=== PATIENT | male | born 1955 | race Caucasian/White ===

== ENCOUNTER → 2018-06-13 10:03 | Outpatient (CLI) | payer MEDICARE, BC, SELFPAY ==
[2018-06-13 11:16] LABS: Add Manual Diff / Slide Review NO; Basophils Percent Auto 0.9 % (0-2); Eosinophils Percent Auto 4.3 % (2-4); Hematocrit 39.2 % (41-53); Hemoglobin 13.4 g/dL (13.5-17.5); Lymphocytes Percent Auto 27.1 % (25-40); Mean Corpuscular HGB Conc 34.1 % (30-36); Mean Corpuscular Hemoglobin 29.7 PG (26-34); Monocytes Percent Auto 10.7 % (3-14); Neutrophils Absolute Auto 3400 /uL (3000-5900); Platelet Count 296 X10^3/uL (150-400); Red Blood Cell Count 4.51 X10^6/uL (4.5-5.9); Red Cell Distribution Width 13.1 % (11.6-14.8); White Blood Cell Count 5.9 X10^3/uL (4.5-11.0)
[2018-06-13 11:26] LABS: Hemoglobin A1C% w Est Avg Glu 7.2 % (4.0-6.0)
[2018-06-13 12:19] LABS: Alanine Aminotransferase 35 IU/L (21-72); Albumin 4.6 g/dL (3.5-5.0); Albumin Globulin Ratio 1.4 (1.0-2.8); Alkaline Phosphatase 81 U/L (38-126); Aspartate Aminotransferase 28 IU/L (17-59); BUN Creatinine Ratio 19.3 (6-22); Bilirubin Total 0.6 mg/dL (0.2-1.3); Blood Urea Nitrogen 29 mg/dL (9-20); Calcium 9.8 mg/dL (8.4-10.2); Carbon Dioxide 32 mmol/L (22-32); Chloride 101 mmol/L (98-107); Cholesterol 126 mg/dL (140-199); Globulin 3.3 g/dL (1.7-4.1); Glucose 137 mg/dL (80-110); HDL Cholesterol 31 mg/dL (40-60); HEMOLYSIS < 15 (0-50); LDL Cholesterol Calculated 58 mg/dL (<100); Potassium 4.6 mmol/L (3.4-5.1); Sodium 141 mmol/L (137-145); Total Protein 7.9 g/dL (6.3-8.2); Triglycerides 183 mg/dL (35-150)
[2018-06-13 14:31] LABS: Creatinine Urine Random 181.2 mg/dL
[2018-06-13 14:35] LABS: Microalbumi Creatinin Ratio Ur 39.1 ug/mg CR (<30); Microalbumin Urine Random 7.1 mg/dL (0-1.6)
== END ==
PROVIDERS: Visit Provider Family Medicine
DX: E78.2 Mixed hyperlipidemia (principal); I10 Essential (primary) hypertension; E11.9 Type 2 diabetes mellitus without complications
CPT/HCPCS: 36415; 80053; 80061; 82043; 82570; 83036; 85025

== ENCOUNTER → 2018-07-22 09:36 | Outpatient (CLI) | payer MEDICARE, BC, SELFPAY ==
[2018-07-22 10:49] LABS: Hemoglobin A1C% w Est Avg Glu 7.2 % (4.0-6.0)
[2018-07-22 10:57] LABS: Cholesterol 204 mg/dL (140-199); HDL Cholesterol 29 mg/dL (40-60); Triglycerides 445 mg/dL (35-150)
== END ==
PROVIDERS: Visit Provider Family Medicine
DX: E78.2 Mixed hyperlipidemia (principal); E11.9 Type 2 diabetes mellitus without complications; M10.9 Gout, unspecified
CPT/HCPCS: 36415; 80061; 83036; 84550

== ENCOUNTER → 2018-12-26 15:20 | Outpatient (CLI) | payer MEDICARE, BC, SELFPAY ==
[2018-12-26 16:13] LABS: Add Manual Diff / Slide Review NO; Basophils Absolute Auto 0 /uL (0-100); Basophils Percent Auto 0.9 % (0-2); Eosinophils Absolute Auto 100 /uL (0-450); Eosinophils Percent Auto 2.4 % (2-4); Hematocrit 41.7 % (41-53); Hemoglobin 13.8 g/dL (13.5-17.5); Lymphocytes Absolute Auto 1300 /uL (1100-4500); Lymphocytes Percent Auto 24.4 % (25-40); Mean Corpuscular HGB Conc 33.1 % (30-36); Mean Corpuscular Hemoglobin 29.1 PG (26-34); Mean Corpuscular Volume 87.9 fL (80-100); Monocytes Absolute Auto 400 /uL (0-900); Neutrophils Absolute Auto 3500 /uL (1500-7000); Neutrophils Percent Auto 64.3 % (50-75); Platelet Count 306 X10^3/uL (150-400); Red Blood Cell Count 4.74 X10^6/uL (4.5-5.9); Red Cell Distribution Width 13.3 % (11.6-14.8); White Blood Cell Count 5.5 X10^3/uL (4.5-11.0)
[2018-12-26 16:47] LABS: Alanine Aminotransferase 27 IU/L (21-72); Albumin 4.9 g/dL (3.5-5.0); Albumin Globulin Ratio 1.7 (1.0-2.8); Alkaline Phosphatase 54 U/L (38-126); Aspartate Aminotransferase 21 IU/L (17-59); BUN Creatinine Ratio 17.9 (6-22); Bilirubin Total 0.3 mg/dL (0.2-1.3); Blood Urea Nitrogen 25 mg/dL (9-20); Calcium 10.3 mg/dL (8.4-10.2); Carbon Dioxide 29 mmol/L (22-32); Chloride 104 mmol/L (98-107); Estimated Glomerular Filt Rate 50.9 mL/min (>60); Globulin 2.9 g/dL (1.7-4.1); Glucose 137 mg/dL (80-110); HEMOLYSIS < 15 (0-50); Potassium 4.7 mmol/L (3.4-5.1); Sodium 142 mmol/L (137-145); Total Protein 7.8 g/dL (6.3-8.2)
[2018-12-26 17:15] LABS: TSH w/ Reflex to FT4 2.22 uIU/mL (0.47-4.68)
[2018-12-28 11:47] LABS: Hemoglobin A1C% w Est Avg Glu 6.5 % (4.0-6.0)
[2018-12-29 14:07] LABS: Testosterone Free 38.6 pg/mL (35.0-155.0); Testosterone Total 404 ng/dL (250-1100)
== END ==
PROVIDERS: Family Provider Student in an Organized Health Care Education/Training Program; PCP Student in an Organized Health Care Education/Training Program; Visit Provider Physician Assistant
DX: E11.9 Type 2 diabetes mellitus without complications (principal); R63.4 Abnormal weight loss
CPT/HCPCS: 36415; 80053; 83036; 84402; 84403; 84443; 85025

== ENCOUNTER → 2018-12-30 15:03 | Outpatient (CLI) | payer MEDICARE, BC, SELFPAY ==
[2018-12-30 16:45] LABS: Vitamin D 25 Hydroxy (D3) 26.8 ng/mL (30.0-100.0)
[2018-12-30 16:59] LABS: Prostate Specific Antigen Scrn 3.86 ng/mL (0.1-4.0)
[2018-12-30 17:02] LABS: C-Reactive Protein Quant < 0.5 mg/dL (<1.0)
[2018-12-30 17:03] LABS: Rubella Antibody IgG > 350.0 IU/mL (>15)
[2019-01-03 14:46] LABS: Rubeola Measles IgG > 300.00 AU/mL (< 25.00)
== END ==
PROVIDERS: Family Provider Student in an Organized Health Care Education/Training Program; PCP Student in an Organized Health Care Education/Training Program; Visit Provider Student in an Organized Health Care Education/Training Program
DX: E55.9 Vitamin D deficiency, unspecified (principal); Z02.89 Encounter for other administrative examinations; R63.4 Abnormal weight loss; N40.1 Benign prostatic hyperplasia with lower urinary tract symptoms; R35.1 Nocturia
CPT/HCPCS: 36415; 82306; 86140; 86735; 86762; 86765; G0103

== ENCOUNTER → 2019-01-02 13:47 | Outpatient (CLI) | payer MEDICARE, BC, SELFPAY ==
[2019-01-02 15:50] LABS: Protein (Total) Urine Random 11 mg/dL (0-12)
[2019-01-02 15:54] LABS: Collection Time Urine 24 Hours; Total Protein 24 Hour Urine 231 mg/day (42-225); Total Volume Urine 2100 mL
== END ==
PROVIDERS: PCP Student in an Organized Health Care Education/Training Program; Visit Provider Student in an Organized Health Care Education/Training Program
DX: E11.9 Type 2 diabetes mellitus without complications (principal); I10 Essential (primary) hypertension
CPT/HCPCS: 84156

== ENCOUNTER → 2019-01-25 12:49 | Outpatient (CLI) | payer MEDICARE, BC, SELFPAY ==
--- NOTE | 2019-01-25 15:22 | DIET.PN ---
DIABETES Nutrition Initial Assessment:? ASSESS:??63?yom referred for type 2 diabetes. Pt with 9-10 year hx of diagnosis however admits he has not taken any action to control his diabetes because the symptoms did not affect him. Pt reports major concern with significant unintentional weight loss (~20#) since September. States he has gone from eating 1 large meal per day to 3. Has increased consumption of carbohydrate containing foods since recent weight loss. He is largely concerned this is related to diabetes. Pt was present for appointment. States he was diagnosed with CKD stage 3. Pt repeatedly states his GFR is improving since being taken off certain medication and that his main concern is his rapid weight loss. Pt also indicated noticeable loss in muscle mass, particularly in his deltoid and chest regions. He also states a feeling of rumbling at night like he is starving after consuming a large evening meal. He has an appointment with supervisor trust accounts in February to investigate potential cause of symptoms. Pt brought in a meter and strips for demonstration. Reports he has never checked his BG. ? LABS: Per pt report:? A1c: 6.5 BUN: 29 Cr: 1.5 eGFR: 47 Microalbumin: Cr: 39.1 ? MEDS:?? metformin ? DIET: Per 24-hour recall:? B: instant breakfast in milk, 2 malay muffins, 2 yogurt w/fruit L: turkey/cheese sandwich D: large plate of spaghetti w/ meat and squash ? Weight: 147# (down from 170) Ht: 69? BMI: 21.7 ? Exercise:? none NUTRITION DX 1. Altered Nutrition related labs related to impaired glucose metabolism, lack of previous exposure to accurate nutrition information as evidenced by pt report, dx of diabetes, previous diet high in refined carbohydrates.? INTERVENTION(s): 1. Discussed pathophysiology of diabetes. Reviewed A1c and its correlation to blood glucose numbers. Discussed recommended BG ranges. 2. Discussed importance of self-monitoring, how often, and when to check. Provided demonstration on use of glucometer. 3. Reviewed hyper/hypoglycemia and treatment. 4. Reviewed safe disposal of equipment (strip/lancets/insulin needles). 5. Discussed impact of nutrition/diet on blood sugar control.? Discussed fed versus non-fed state.?? 6. Discussed the effect of carbohydrates/protein/fat on blood sugar control.? Stressed importance of consistent carbohydrate intake at each meal and provided instructions for recommended servings/portions of carbohydrates/protein per meal. Provided pt with educational material. 7. Reviewed carbohydrate counting and measuring carbohydrate content via servings sizes and reading nutrition labels.? Provided handouts.?? 8. Discussed the difference between simple versus complex carbohydrates and the effect of fiber on blood sugar control.? Discussed various methods to increase fiber content in diet. 9. Stressed importance of meal timing and not going >4-5 hours between meals. Encouraged adding protein to each meal to support glucose control and provide increased caloric intake for weight stabilization. Provided list of protein foods by order of least to most saturated fat. Discussed best protein options for heart health and to alleviate hunger. Patient agreeable. 10. Discussed healthy weight through diet and exercise to increase lean muscle mass.? Pt agreeable to walking daily. MONITOR/EVALUATE: Anticipate good compliance.? Pt has an appointment with the supervisor trust accounts in February to discuss unintentional weight loss concerns. Will request prescription for new meter and strips to test 2x/day (FBG and alternating 2 hr PP).
== END ==
PROVIDERS: Family Provider Student in an Organized Health Care Education/Training Program; PCP Student in an Organized Health Care Education/Training Program; Visit Provider Student in an Organized Health Care Education/Training Program
DX: E11.9 Type 2 diabetes mellitus without complications (principal); Z79.84 Long term (current) use of oral hypoglycemic drugs
CPT/HCPCS: 97802

== ENCOUNTER → 2019-05-23 11:10 | Outpatient (CLI) | payer MEDICARE, BC, SELFPAY ==
[2019-05-23 12:17] LABS: Hematocrit 42.2 % (41-53); Hemoglobin 14.3 g/dL (13.5-17.5); Mean Corpuscular HGB Conc 33.9 % (30-36); Mean Corpuscular Hemoglobin 29.5 PG (26-34); Mean Corpuscular Volume 86.8 fL (80-100); Platelet Count 331 X10^3/uL (150-400); Red Blood Cell Count 4.85 X10^6/uL (4.5-5.9); Red Cell Distribution Width 13.3 % (11.6-14.8); White Blood Cell Count 6.6 X10^3/uL (4.5-11.0)
[2019-05-23 12:20] LABS: Hemoglobin A1C% w Est Avg Glu 6.2 % (4.0-6.0)
[2019-05-23 12:41] LABS: Alanine Aminotransferase 19 IU/L (21-72); Albumin 4.7 g/dL (3.5-5.0); Albumin Globulin Ratio 1.4 (1.0-2.8); Alkaline Phosphatase 83 U/L (38-126); Aspartate Aminotransferase 23 IU/L (17-59); BUN Creatinine Ratio 20.8 (6-22); Bilirubin Total 0.6 mg/dL (0.2-1.3); Blood Urea Nitrogen 27 mg/dL (9-20); Calcium 10.2 mg/dL (8.4-10.2); Carbon Dioxide 32 mmol/L (22-32); Chloride 102 mmol/L (98-107); Cholesterol 118 mg/dL (140-199); Estimated Glomerular Filt Rate 55.4 mL/min (>60); Globulin 3.3 g/dL (1.7-4.1); Glucose 112 mg/dL (80-110); HDL Cholesterol 31 mg/dL (40-60); HEMOLYSIS < 15 (0-50); LDL Cholesterol Calculated 65 mg/dL (<100); Potassium 5.2 mmol/L (3.4-5.1); Sodium 143 mmol/L (137-145); Triglycerides 108 mg/dL (35-150)
== END ==
PROVIDERS: PCP Student in an Organized Health Care Education/Training Program; Visit Provider Student in an Organized Health Care Education/Training Program
DX: F32.9 Major depressive disorder, single episode, unspecified (principal); G47.33 Obstructive sleep apnea (adult) (pediatric); E11.9 Type 2 diabetes mellitus without complications; E78.2 Mixed hyperlipidemia; I12.9 Hypertensive chronic kidney disease with stage 1 through stage 4 chronic kidney disease, or unspecified chronic kidney disease; N18.3 Chronic kidney disease, stage 3 (moderate); Z79.899 Other long term (current) drug therapy
CPT/HCPCS: 80053; 80061; 83036; 85027

== ENCOUNTER → 2019-07-18 13:45 | Outpatient (CLI) | payer MEDICARE, BC, SELFPAY ==
--- NOTE | 2019-07-18 13:46 | DI.RAD.S_ITS ---
PROCEDURE: XR KNEE RT 3V INDICATIONS: Right knee pain TECHNIQUE: 3 views of the knee were acquired. COMPARISON: None. FINDINGS: Bones: No fractures or dislocations. No suspicious bony lesions. Scattered degenerative subchondral sclerosis and spurring. Mild narrowing of the medial and lateral joint spaces Soft tissues: No joint effusion. No suspicious soft tissue calcifications. Chronic appearing possible loose body seen at the medial aspect of the medial compartment measuring 5 mm. Scattered vascular calcifications. IMPRESSION: Moderate knee joint degeneration. Possible loose body versus heterotopic ossification projecting at the medial aspect of the medial compartment. Dictated by: Mario Sewell M.D. on 07/18/2019 at 17:24 Approved by: Mario Sewell M.D. on 07/18/2019 at 17:30
== END ==
PROVIDERS: PCP Student in an Organized Health Care Education/Training Program; Visit Provider Registered Nurse
DX: M25.561 Pain in right knee (principal)
CPT/HCPCS: 73562

== ENCOUNTER → 2019-11-28 10:52 | Outpatient (CLI) | payer MEDICARE, BC, SELFPAY ==
[2019-11-28 11:24] LABS: Hemoglobin A1C% w Est Avg Glu 6.3 % (4.0-6.0)
[2019-11-28 11:47] LABS: Blood Urea Nitrogen 24 mg/dL (9-20); Carbon Dioxide 30 mmol/L (22-32); Chloride 105 mmol/L (98-107); Estimated Glomerular Filt Rate > 60.0 mL/min (>60); Glucose 131 mg/dL (80-110); HEMOLYSIS < 15 (0-50); Potassium 5.2 mmol/L (3.4-5.1); Sodium 144 mmol/L (137-145)
[2019-11-28 12:17] LABS: Prostate Specific Antigen Scrn 6.52 ng/mL (0.1-4.0)
== END ==
PROVIDERS: PCP Student in an Organized Health Care Education/Training Program; Visit Provider Student in an Organized Health Care Education/Training Program
DX: Z12.5 Encounter for screening for malignant neoplasm of prostate (principal); E11.9 Type 2 diabetes mellitus without complications; I10 Essential (primary) hypertension; N18.3 Chronic kidney disease, stage 3 (moderate)
CPT/HCPCS: 36415; 80048; 83036; G0103

== ENCOUNTER → 2020-01-03 15:36 | Outpatient (CLI) | payer MEDICARE, BC, SELFPAY ==
[2020-01-03 16:53] LABS: Prostate Specific Antigen 6.14 ng/mL (0.10-4.00)
== END ==
PROVIDERS: PCP Student in an Organized Health Care Education/Training Program; Referring Provider Urology; Visit Provider Urology
DX: Z12.5 Encounter for screening for malignant neoplasm of prostate (principal)
CPT/HCPCS: 36415; 84153

== ENCOUNTER → 2020-05-03 09:36 | Outpatient (CLI) | payer MEDICARE, BC, SELFPAY ==
[2020-05-03 11:21] LABS: Hemoglobin A1C% w Est Avg Glu 6.3 % (4.0-6.0)
[2020-05-03 11:29] LABS: BUN Creatinine Ratio 18.5 (6-22); Blood Urea Nitrogen 22 mg/dL (9-20); Calcium 9.9 mg/dL (8.4-10.2); Carbon Dioxide 27 mmol/L (22-32); Chloride 102 mmol/L (98-107); Estimated Glomerular Filt Rate > 60.0 mL/min (>60); Glucose 133 mg/dL (80-110); HEMOLYSIS < 15 (0-50); Potassium 4.8 mmol/L (3.4-5.1); Sodium 139 mmol/L (137-145)
[2020-05-04 09:10] LABS: SARS CoV19 IgG Negative (Negative)
== END ==
PROVIDERS: PCP Student in an Organized Health Care Education/Training Program; Referring Provider Student in an Organized Health Care Education/Training Program; Visit Provider Student in an Organized Health Care Education/Training Program
DX: Z11.59 Encounter for screening for other viral diseases (principal); I10 Essential (primary) hypertension; N18.3 Chronic kidney disease, stage 3 (moderate); E11.9 Type 2 diabetes mellitus without complications
CPT/HCPCS: 36415; 80048; 83036; 86769

== ENCOUNTER → 2020-09-16 12:20 | Outpatient (CLI) | payer MEDICARE, BC, SELFPAY ==
--- NOTE | 2020-09-16 12:21 | DI.US.S_ITS ---
PROCEDURE: US RENAL COMPLETE INDICATIONS: Urinary retention TECHNIQUE: Real-time scanning was performed of the kidneys and bladder, with image documentation. COMPARISON: [facility], US, US ABDOMEN COMPLETE, 03/07/2019, 16:15. FINDINGS: Kidneys: Kidneys are normal in size. Right kidney measures 9.8 cm long; left kidney measures 10.5 cm long. Right renal cortical thickness is 1.8 cm; left renal cortical thickness is 1.6 cm. Renal cortical echotexture is normal. No hydronephrosis or nephrolithiasis. No suspicious solid mass lesions. At the right kidney an area of what appears to be renal sinus fat with a column of Marc both above and below, at the middle 3rd of the renal cortex. Several small simple cortical cysts are present, at the lower pole on the right and the upper pole on the left. Bladder: Pre-void bladder volume is 518 mL. Post-void residual is one hundred mL. Pre-void images demonstrate no intraluminal masses or stones. On pre-void images, bilateral ureteral jets are noted with color Doppler interrogation. (Of note, ureteral jets may not be detectable in up to 25% of cases due to insufficient differences in specific gravity between ureteral and bladder urine). Miscellaneous: No free pelvic fluid. A bladder mass is not found, pre void bladder volume is 518 cc with postvoid residual 100 cc. IMPRESSION: 100 cc urinary retention within the bladder in this patient with prevoid bladder volume of 518 cc. No hydronephrosis or nephrolithiasis found. Dictated by: Dariel Trejo M.D. on 09/16/2020 at 13:39 Approved by: Dariel Trejo M.D. on 09/16/2020 at 13:47
== END ==
PROVIDERS: PCP Student in an Organized Health Care Education/Training Program; Referring Provider Student in an Organized Health Care Education/Training Program; Visit Provider Student in an Organized Health Care Education/Training Program
DX: R33.9 Retention of urine, unspecified (principal)
CPT/HCPCS: 76770

== ENCOUNTER → 2020-12-25 13:46 | Outpatient (CLI) | payer MEDICARE, BC, SELFPAY ==
[2020-12-25 15:34] LABS: Hemoglobin A1C% w Est Avg Glu 6.8 % (4.0-6.0)
[2020-12-25 15:50] LABS: Alanine Aminotransferase 32 IU/L (<50); Albumin 4.4 g/dL (3.5-5.0); Albumin Globulin Ratio 1.8 (1.0-2.8); Alkaline Phosphatase 70 U/L (38-126); Aspartate Aminotransferase 23 IU/L (17-59); BUN Creatinine Ratio 21.3 (6-22); Bilirubin Total 0.3 mg/dL (0.2-1.3); Bilirubin Unconjugated 0.4 mg/dL (0.0-1.1); Blood Urea Nitrogen 26 mg/dL (9-20); Estimated Glomerular Filt Rate 59.2 mL/min (>60); Globulin 2.5 g/dL (1.7-4.1); HEMOLYSIS < 15 (0-50); Total Protein 6.9 g/dL (6.3-8.2)
[2020-12-25 16:18] LABS: Prostate Specific Antigen Scrn 4.24 ng/mL (0.1-4.0)
[2020-12-25 18:04] LABS: Creatinine Urine Random 154.6 mg/dL
[2020-12-25 18:09] LABS: Microalbumi Creatinin Ratio Ur 58.2 ug/mg CR (<30)
== END ==
PROVIDERS: PCP Student in an Organized Health Care Education/Training Program; Referring Provider Student in an Organized Health Care Education/Training Program; Visit Provider Student in an Organized Health Care Education/Training Program
DX: E11.9 Type 2 diabetes mellitus without complications (principal); Z12.5 Encounter for screening for malignant neoplasm of prostate; I10 Essential (primary) hypertension; N18.2 Chronic kidney disease, stage 2 (mild); R97.20 Elevated prostate specific antigen [PSA]
CPT/HCPCS: 36415; 80076; 82043; 82565; 82570; 83036; 84520; G0103

== ENCOUNTER → 2021-06-05 11:02 | Outpatient (CLI) | payer MEDICARE, BC, SELFPAY ==
[2021-06-05 11:57] LABS: Blood Urea Nitrogen 23 mg/dL (9-20); Estimated Glomerular Filt Rate 52.6 mL/min (>60)
[2021-06-05 12:11] LABS: Hemoglobin A1C% w Est Avg Glu 6.7 % (4.0-6.0)
== END ==
PROVIDERS: PCP Student in an Organized Health Care Education/Training Program; Referring Provider Student in an Organized Health Care Education/Training Program; Visit Provider Student in an Organized Health Care Education/Training Program
DX: E11.9 Type 2 diabetes mellitus without complications (principal); N18.2 Chronic kidney disease, stage 2 (mild)
CPT/HCPCS: 36415; 82565; 83036; 84520

== ENCOUNTER → 2021-06-23 11:34 | Outpatient (CLI) | payer MEDICARE, BC, SELFPAY ==
[2021-06-23 12:36] LABS: Creatine Kinase 111 U/L (55-170)
[2021-06-26 13:16] LABS: ANA Screen, IFA Negative (.)
== END ==
PROVIDERS: PCP Student in an Organized Health Care Education/Training Program; Referring Provider Student in an Organized Health Care Education/Training Program; Visit Provider Student in an Organized Health Care Education/Training Program
DX: M62.81 Muscle weakness (generalized) (principal); M79.10 Myalgia, unspecified site
CPT/HCPCS: 36415; 82550; 86038

== ENCOUNTER → 2021-09-25 16:16 | Outpatient (CLI) | payer MEDICARE, BC, SELFPAY ==
--- NOTE | 2021-09-25 16:17 | DI.RAD.S_ITS ---
PROCEDURE: XR KNEE RT 3V INDICATIONS: Bilateral knee pain TECHNIQUE: 3 views of the knee were acquired. COMPARISON: [facility], , XR KNEE RT 3V, 07/18/2019, 13:46. FINDINGS: Bones: No fractures or dislocations. No suspicious bony lesions. Moderate to severe narrowing of the medial femorotibial joint as well as the patellofemoral knee joint and tricompartmental periarticular osteophyte formation. Soft tissues: Small joint effusion. No suspicious soft tissue calcifications. IMPRESSION: Tricompartmental knee joint degeneration, most notably involving the medial femorotibial and the patellofemoral knee joints. Dictated by: Xavi MCCLENDON Interpreted: Feliberto Martinez MD on 09/25/2021 at 16:41 Transcribed by: ANUJA on 09/25/2021 at 16:41 Approved by: Feliberto Martinez M.D. on 09/25/2021 at 17:18
--- NOTE | 2021-09-25 16:17 | DI.RAD.S_ITS ---
PROCEDURE: XR KNEE LT 3V INDICATIONS: Bilateral knee pain TECHNIQUE: 3 views of the knee were acquired. COMPARISON: [facility], CR, XR KNEE RT 3V, 07/18/2019, 13:46. FINDINGS: Bones: No fractures or dislocations. No suspicious bony lesions. Moderate narrowing of the medial femorotibial and moderate to severe narrowing of the patellofemoral knee joints. Tricompartmental periarticular osteophyte formation. Soft tissues: Trace joint effusion. No suspicious soft tissue calcifications. IMPRESSION: Tricompartmental knee joint degeneration most notably involving the medial femoral tibial and patellofemoral knee joints. Dictated by: Xavi Soto RRJahaira Interpreted: Feliberto Martinez MD on 09/25/2021 at 16:41 Transcribed by: ANUJA on 09/25/2021 at 16:42 Approved by: Feliberto Martinez M.D. on 09/25/2021 at 17:18
== END ==
PROVIDERS: PCP Student in an Organized Health Care Education/Training Program; Referring Provider Student in an Organized Health Care Education/Training Program; Visit Provider Student in an Organized Health Care Education/Training Program
DX: M25.561 Pain in right knee (principal); M25.562 Pain in left knee; M17.0 Bilateral primary osteoarthritis of knee
CPT/HCPCS: 73562

== ENCOUNTER → 2022-01-19 11:47 | Outpatient (CLI) | payer MEDICARE, BC, SELFPAY ==
[2022-01-19 13:46] LABS: BUN Creatinine Ratio 14.4 (6-22); Blood Urea Nitrogen 21 mg/dL (9-20); Carbon Dioxide 29 mmol/L (22-32); Chloride 104 mmol/L (98-107); Cholesterol 210 mg/dL (140-199); Glucose 137 mg/dL (80-110); HDL Cholesterol 30 mg/dL (40-60); HEMOLYSIS < 15 (0-50); Sodium 139 mmol/L (137-145); Triglycerides 431 mg/dL (35-150)
[2022-01-19 14:09] LABS: Prostate Specific Antigen Scrn 5.79 ng/mL (0.1-4.0)
[2022-01-19 14:35] LABS: Hemoglobin A1C% w Est Avg Glu 6.7 % (4.0-6.0)
[2022-01-19 15:38] LABS: Creatinine Urine Random 182.1 mg/dL
[2022-01-19 15:39] LABS: Microalbumi Creatinin Ratio Ur 80.1 ug/mg CR (<30); Microalbumin Urine Random 14.6 mg/dL (0-1.6)
== END ==
PROVIDERS: PCP Student in an Organized Health Care Education/Training Program; Referring Provider Student in an Organized Health Care Education/Training Program; Visit Provider Student in an Organized Health Care Education/Training Program
DX: E11.69 Type 2 diabetes mellitus with other specified complication (principal); E78.5 Hyperlipidemia, unspecified; I10 Essential (primary) hypertension; N18.2 Chronic kidney disease, stage 2 (mild); Z12.5 Encounter for screening for malignant neoplasm of prostate
CPT/HCPCS: 36415; 80048; 80061; 82043; 82570; 83036; G0103

== ENCOUNTER → 2022-04-15 07:56 | Outpatient (CLI) | payer MEDICARE, BC, SELFPAY ==
[2022-04-15 09:10] LABS: Add Manual Diff / Slide Review NO; Basophils Absolute Auto 0 /uL (0-100); Basophils Percent Auto 0.5 % (0-2); Eosinophils Absolute Auto 600 /uL (0-450); Eosinophils Percent Auto 9.2 % (2-4); Hematocrit 35.1 % (41-53); Hemoglobin 12.2 g/dL (13.5-17.5); Lymphocytes Absolute Auto 1200 /uL (1100-4500); Lymphocytes Percent Auto 19.2 % (25-40); Mean Corpuscular HGB Conc 34.8 % (30-36); Mean Corpuscular Hemoglobin 29.4 PG (26-34); Mean Corpuscular Volume 84.5 fL (80-100); Monocytes Absolute Auto 600 /uL (0-900); Monocytes Percent Auto 9.6 % (3-14); Neutrophils Absolute Auto 3900 /uL (1500-7000); Neutrophils Percent Auto 61.5 % (50-75); Platelet Count 239 X10^3/uL (150-400); Red Blood Cell Count 4.15 X10^6/uL (4.5-5.9); Red Cell Distribution Width 13.6 % (11.6-14.8); White Blood Cell Count 6.4 X10^3/uL (4.5-11.0)
[2022-04-15 09:21] LABS: Hemoglobin A1C% w Est Avg Glu 7.4 % (4.0-6.0)
[2022-04-15 09:34] LABS: BUN Creatinine Ratio 18.6 (6-22); Blood Urea Nitrogen 24 mg/dL (9-20); Calcium 9.3 mg/dL (8.4-10.2); Carbon Dioxide 27 mmol/L (22-32); Chloride 106 mmol/L (98-107); Estimated Glomerular Filt Rate > 60 mL/min (>60); Glucose 166 mg/dL (80-110); HEMOLYSIS < 15 (0-50); Potassium 4.6 mmol/L (3.4-5.1); Sodium 140 mmol/L (137-145)
== END ==
PROVIDERS: PCP Student in an Organized Health Care Education/Training Program; Referring Provider Orthopaedic Surgery; Visit Provider Orthopaedic Surgery
DX: Z01.818 Encounter for other preprocedural examination (principal); R73.9 Hyperglycemia, unspecified; Z01.812 Encounter for preprocedural laboratory examination
CPT/HCPCS: 36415; 80048; 83036; 85025; 93005; 93010

== ENCOUNTER → 2022-05-06 15:23 | Outpatient (CLI) | payer MEDICARE, BC, SELFPAY ==
[2022-05-07 09:02] LABS: Fructosamine 273 umol/L (0-285)
== END ==
PROVIDERS: PCP Student in an Organized Health Care Education/Training Program; Referring Provider Student in an Organized Health Care Education/Training Program; Visit Provider Student in an Organized Health Care Education/Training Program
DX: E11.9 Type 2 diabetes mellitus without complications (principal)
CPT/HCPCS: 36415; 82985

== ENCOUNTER → 2022-05-25 09:28 | Outpatient (CLI) | payer MEDICARE, BC, SELFPAY ==
[2022-05-25 10:27] LABS: Add Manual Diff / Slide Review NO; Basophils Absolute Auto 0 /uL (0-100); Eosinophils Absolute Auto 400 /uL (0-450); Eosinophils Percent Auto 9.3 % (2-4); Hematocrit 35.4 % (41-53); Hemoglobin 12.1 g/dL (13.5-17.5); Lymphocytes Absolute Auto 1200 /uL (1100-4500); Lymphocytes Percent Auto 26.4 % (25-40); Mean Corpuscular HGB Conc 34.3 % (30-36); Mean Corpuscular Volume 84.8 fL (80-100); Monocytes Absolute Auto 500 /uL (0-900); Monocytes Percent Auto 9.7 % (3-14); Neutrophils Absolute Auto 2500 /uL (1500-7000); Neutrophils Percent Auto 53.6 % (50-75); Platelet Count 249 X10^3/uL (150-400); Red Blood Cell Count 4.17 X10^6/uL (4.5-5.9); Red Cell Distribution Width 13.8 % (11.6-14.8); White Blood Cell Count 4.6 X10^3/uL (4.5-11.0)
[2022-05-25 10:33] LABS: Blood Urea Nitrogen 25 mg/dL (9-20); Calcium 9.2 mg/dL (8.4-10.2); Carbon Dioxide 27 mmol/L (22-32); Chloride 106 mmol/L (98-107); Estimated Glomerular Filt Rate > 60 mL/min (>60); Glucose 147 mg/dL (80-110); HEMOLYSIS < 15 (0-50); Potassium 4.6 mmol/L (3.4-5.1); Sodium 141 mmol/L (137-145)
[2022-05-25 10:39] LABS: RBC Urine None Seen (0-5/HPF); WBC Urine None Seen (0-5/HPF)
[2022-05-25 10:40] LABS: Bacteria Urine None Seen; Culture Indicated Urine Cult Not Indicated; Squamous Epithelial Cell Urine 0-1 /HPF (0-5/HPF)
[2022-05-25 11:31] LABS: Creatinine Urine Random 115.5 mg/dL
[2022-05-25 11:35] LABS: Microalbumi Creatinin Ratio Ur 78.7 ug/mg CR (<30); Microalbumin Urine Random 9.1 mg/dL (0-1.6)
== END ==
PROVIDERS: PCP Student in an Organized Health Care Education/Training Program; Referring Provider Internal Medicine Nephrology; Visit Provider Internal Medicine Nephrology
DX: N17.9 Acute kidney failure, unspecified (principal)
CPT/HCPCS: 36415; 80048; 81015; 82043; 82570; 85025

== ENCOUNTER → 2022-06-15 10:04 | Outpatient (CLI) | payer MEDICARE, BC, SELFPAY ==
[2022-06-15 12:01] LABS: Appearance Urine UA CLEAR; Bilirubin Urine UA NEGATIVE (NEGATIVE); Color Urine UA YELLOW; Glucose Urine UA NEGATIVE (Negative); Ketones Urine UA NEGATIVE (NEGATIVE); Leukocyte Esterase Urine UA 1+ (NEGATIVE); Nitrite Urine UA NEGATIVE (Negative); Occult Blood Urine UA NEGATIVE (Negative); Protein Urine UA NEGATIVE (Negative); Urobilinogen Urine UA 0.2 E.U./dL (0.2); pH Urine UA 6.5 (4.5-8.0)
[2022-06-15 12:08] LABS: Bacteria Urine None Seen; Culture Indicated Urine Specimen Cultured; RBC Urine None Seen (0-5/HPF); Squamous Epithelial Cell Urine None Seen (0-5/HPF); WBC Urine 1-5/HPF (0-5/HPF)
[2022-06-15 12:22] LABS: Add Manual Diff / Slide Review NO; Basophils Absolute Auto 0 /uL (0-100); Basophils Percent Auto 0.9 % (0-2); Creatinine Urine Random 92.3 mg/dL; Eosinophils Absolute Auto 400 /uL (0-450); Eosinophils Percent Auto 6.5 % (2-4); Hematocrit 37.6 % (41-53); Hemoglobin 12.8 g/dL (13.5-17.5); Lymphocytes Absolute Auto 1300 /uL (1100-4500); Lymphocytes Percent Auto 22.5 % (25-40); Mean Corpuscular HGB Conc 34.1 % (30-36); Mean Corpuscular Hemoglobin 29.2 PG (26-34); Mean Corpuscular Volume 85.7 fL (80-100); Monocytes Absolute Auto 500 /uL (0-900); Monocytes Percent Auto 9.7 % (3-14); Neutrophils Absolute Auto 3400 /uL (1500-7000); Neutrophils Percent Auto 60.4 % (50-75); Platelet Count 255 X10^3/uL (150-400); Red Blood Cell Count 4.39 X10^6/uL (4.5-5.9); Red Cell Distribution Width 13.7 % (11.6-14.8); White Blood Cell Count 5.6 X10^3/uL (4.5-11.0)
[2022-06-15 12:26] LABS: Microalbumi Creatinin Ratio Ur 63.9 ug/mg CR (<30); Microalbumin Urine Random 5.9 mg/dL (0-1.6)
[2022-06-15 12:31] LABS: BUN Creatinine Ratio 18.4 (6-22); Blood Urea Nitrogen 26 mg/dL (9-20); Calcium 9.6 mg/dL (8.4-10.2); Carbon Dioxide 28 mmol/L (22-32); Chloride 103 mmol/L (98-107); Estimated Glomerular Filt Rate 54 mL/min (>60); Glucose 122 mg/dL (80-110); HEMOLYSIS < 15 (0-50); Potassium 4.6 mmol/L (3.4-5.1); Sodium 140 mmol/L (137-145)
[2022-06-15 13:58] LABS: COVID19 -Nasal RAPID Negative (Negative)
== END ==
PROVIDERS: PCP Student in an Organized Health Care Education/Training Program; Referring Provider Orthopaedic Surgery; Visit Provider Orthopaedic Surgery
DX: E11.9 Type 2 diabetes mellitus without complications (principal); N17.9 Acute kidney failure, unspecified; Z20.822 Contact with and (suspected) exposure to COVID-19; Z11.59 Encounter for screening for other viral diseases
CPT/HCPCS: 36415; 80048; 81001; 82043; 82570; 85025; 87086; 87635; C9803

== ENCOUNTER 2022-06-17 06:50 | Day surgery (SDC) | payer MEDICARE, BC, SELFPAY ==
[2022-06-09 10:48] VITALS: BMI 23.8
[2022-06-17] VITALS (12 sets, daily range): BP systolic 117–137; BP diastolic 59–80; PULSE 58–77; RESP 12–18; TEMP 35.8–36.8; O2SAT 95–98; BMI 23.8
[2022-06-17] MEDS: LACTATED RINGERS 1,000 ML 42 ML IV (07:54)
--- NOTE | 2022-06-17 08:31 | PM.PREOP ---
Pre-operative Note COVID-19 COVID-19 status: Negative Result date/Date tested (Pos, Neg/Pending): 06/15/22 Interval Note History & Physical reviewed/Exam performed by Physician: Yes Changes to H&P: No
--- NOTE | 2022-06-17 08:32 | DI.RAD.S_ITS ---
PROCEDURE: XR KNEE RT 1TO2V INDICATIONS: post op total knee TECHNIQUE: 2 view(s) of the knee acquired. COMPARISON: [facility], CR, XR KNEE LT 3V, 09/25/2021, 16:15. FINDINGS: Bones: Patient is status post knee joint arthroplasty. Hardware components are in expected positions. Visualized bony structures are intact. Soft tissues: Overlying postoperative changes are noted. IMPRESSION: Postoperative changes of right total knee arthroplasty. Dictated by: Gavin Goins M.D. on 06/17/2022 at 11:26 Approved by: Gavin Goins M.D. on 06/17/2022 at 11:26
[2022-06-17] MEDS: CEFAZOLIN 2 GM/20 ML SYRINGE IV (09:08)
[2022-06-17] MEDS: TRANEXAMIC ACID 1,000 MG VIAL 2000 MG INJ ×2 (09:28→10:14)
--- NOTE | 2022-06-17 09:43 | SUR.OPER ---
Supine on padded OR bed. Pillow under head, arms secured on padded armboards <90 degree abduction. Safety belt across torso. Non-operative leg secured with tape over blanket over lower leg. Operative leg secured in DeMayo/Latrell/Nathe positioner. Foam padded brace at thigh of operative leg. POSITION APPROVED BY SURGEON AND ANESTHESIA
[2022-06-17] MEDS: BUPIVACAINE LIPOSOME 266 MG/20 ML VIAL INJ (10:07)
[2022-06-17] MEDS: BUPIVACAINE 0.5% (PF) 30 ML, EPINEPHrine 0.15 MG INJ (10:11)
[2022-06-17] MEDS: MORPHINE 4 MG/ML INJ INJ (10:12)
--- NOTE | 2022-06-17 10:56 | P.OP_ITS ---
Operative Date/Time/Diagnoses Date of procedure: 06/17/22 Time of procedure: 10:56 Pre-op diagnosis: Right knee osteoarthritis Post-op diagnosis: same Procedure & Clinicians Procedure: Right total knee replacement Same procedure as scheduled: Yes Indications: The patient has had progressively worsening right knee pain with radiographic changes consistent with arthritis. Non-operative management has failed and the patient has requested total knee replacement. The risks, benefits and alternatives to surgery were discussed with the patient prior to proceeding. Risks discussed included, but were not limited to, failure to relieve pain, stiffness, infection, nerve damage, deep venous thrombosis, pulmonary embolism, stroke, coma, heart attack, permanent paralysis and , as well as the potential need for eventual revision of the prosthetic. Surgeon: Jose Alfredo Carrasco Repairer Shoe Sticks: Tino Billy Click Yes if Unassisted: No Anesthesia Type: General, Spinal and Local Operative Notes Findings: Severe medial and patellofemoral osteoarthritis with significant flexion contracture. Closure Type: primary Specimen(s): none sent Prosthetic devices, grafts, tissues, transplants, or devices: Implants used in this procedure were manufactured by the [employer] and [employer] and included the BCS II Journey total knee replacement with a size 5 right Oxinium femoral component, size 5 right non porous tibial base plate, a 9 mm cross-linked polyethylene tibial insert and a 32 mm all polyethylene oval June II patella. Applied: implant(s) Estimated Blood Loss (mL): 25 Blood products transfused: none Tourniquet time (min): 48 Procedure in detail: The patient was seen in the pre-operative area, where the patient identified the right knee as the operative site and this was marked with my initials. The patient received pre-operative antibiotics, and was taken to the operating room and placed on the operative table in the supine position. After satisfactory anesthesia, a multimedia educational specialist out was performed. The right leg was encircled with a tourniquet about the proximal thigh, and the leg was prepared from the toes to the tourniquet with ChloroPrep in the usual fashion and draped through sterile drapes. The leg was elevated and exsanguinated with Eschmark bandage and the tourniquet inflated to 250 mmHg pressure. The knee was approached through an approximately 18 cm incision centered over the patella and carried into the knee through a medial parapatellar arthrotomy. The anterior osteophytes and soft tissues were removed. The rotational landmarks of Price's line and the transepicondylar axis were marked on the femur with electrocautery, and intramedullary guide holes for the femur and tibia were created. The distal femoral cut was made in 6 degrees of valgus using the intramedullary guide at the +2 cut setting due to his flexion contracture. The proximal tibial cut was then made using the intramedullary guide, taking 9 mm of bone off the less involved side. The extension gap was checked and the rotation of the femoral component confirmed with the gap balancing system. The anterior, posterior and chamfer cuts were then made. The posterior osteophytes and soft tissues were then removed. The posterior capsule was injected with part of a mixture of 60 ml 0.25% Marcaine mixed with 20 ml Exparel and 4 mg of morphine for post-operative pain control. The remainder of this mixture was injected into the capsule and subcutaneous tissues during cement curing. The tibia was prepared with the rotation set by an extra medullary guide. Trial tibial and femoral components were then placed and the intercondylar notch cut through the femoral trial. Range of motion was 0-140 degrees, with good stability throughout the range. The patella was then cut to accommodate the patellar prosthetic. There was no need for a lateral release. The trials were then removed, and the femoral hole plugged with a bone plug. The bone was prepared with pulsatile lavage, and dried with a sponge. Cement was applied and the final prosthetics placed. Excess cement was removed during and after cement curing. After confirming there was no extruded cement posteriorly, the final tibial insert was placed. The knee was copiously irrigated and the tourniquet deflated. Hemostasis was obtained. The capsule was closed with interrupted # 2 polyester suture. The subcutaneous layer was closed with 3-0 Vicryl, and the skin with a running 3-0 V-Lock suture and Dermabond. An Aquacel Ag dressing was applied and the patient was taken to recovery having tolerated the procedure well. Complications: none Post-operative Condition: stable Disposition: PACU Plan for aftercare: The patient will be maintained on a standard total knee replacement protocol with weight bearing as tolerated. The patient will receive aspirin and sequential compression devices for DVT prophylaxis. The patient will be discharged home when safe for the home environment.
[2022-06-17] MEDS: ACETAMINOPHEN 325 MG TABLET 650 MG PO ×2 (12:24→17:58)
[2022-06-17] MEDS: IBUPROFEN 400 MG TABLET PO (12:25)
[2022-06-17] MEDS: OXYCODONE IR 10 MG TABLET PO (12:25)
[2022-06-17] MEDS: buPROPion XL 150 MG TAB PO (12:25)
[2022-06-17] MEDS: LACTATED RINGERS 1,000 ML 100 ML IV ×2 (12:26→21:52)
[2022-06-17] MEDS: hydrOXYzine pamoate 25 MG CAPSULE PO (13:08)
[2022-06-17] MEDS: HYDROMORPHONE 2 MG TABLET PO ×3 (15:34→21:39)
--- NOTE | 2022-06-17 15:53 | PT.IIE ---
Current Diagnoses Unilateral primary osteoarthritis, right knee (06/17/22) Surgery Performed Operation Date: 06/17/22 08:45 Actual Procedures p Total Knee Arthroplasty(Right) - Jose Alfredo Carrasco MD Surgical History (Last Updated 06/09/22 @ 11:14 by Whitney Burch, RN) H/O esophagogastroduodenoscopy (~2019) History of surgery History of uvulopalatopharyngoplasty (~2006) Hx of colonoscopy (~2019) Hx of prostate biopsy (~2020) Medical History (Last Updated 06/09/22 @ 12:49 by Whitney Burch, RN) Anemia Chickenpox (Unknown) COPD (chronic obstructive pulmonary disease) Depression Essential hypertension (03/25/18) GERD (gastroesophageal reflux disease) (Unknown) Gout (Unknown) Gout Hearing loss (Unknown) Obstructive sleep apnea (Unknown) DEMETRIA (obstructive sleep apnea) Tinnitus of both ears (Unknown) Type 2 diabetes mellitus without complication, without long-term current use of insulin (03/25/18) Physical Therapy Inpatient Evaluation/Re-Eval M1 PT/OT-IP Prior Functional Status Start: 06/17/22 14:53 Freq: NEEDED Status: Active Protocol: Document 06/17/22 15:35 [facility] (Rec: 06/17/22 15:51 [facility] [id number]) Medical Review Prior Functional Status Medical History Reviewed Yes Diet/Fluid Consistency Regular Communication No difficulties noted. 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 PT-IP Current Condition Start: 06/17/22 14:53 Freq: NEEDED Status: Active Protocol: Document 06/17/22 15:35 [facility] (Rec: 06/17/22 15:51 [facility] [id number]) Physical Therapy Current Condition Current Condition Evaluation Date 06/17/22 Treatment Diagnosis s/p right TKA Onset Date 06/17/22 M3 PT-IP Subjective Start: 06/17/22 14:53 Freq: NEEDED Status: Active Protocol: Document 06/17/22 15:35 [facility] (Rec: 06/17/22 15:51 [facility] [id number]) Subjective Physical Therapy Visit Type Type Initial Evaluation Visit Start Time 15:00 Visit Stop Time 15:37 Total Visit Minutes 37 Therapy Pain Assessment Pain When Pain Assessed At Rest Pain Present Pain Present Pain Reported Location Right Knee Intensity 6 Scale Used Numeric (0 - 10) Description Aching,Pressure,Tender, Tightness Pain Management Techniques Apply Cold M4 PT-IP Mobility and Gait Start: 06/17/22 14:53 Freq: NEEDED Status: Active Protocol: Document 06/17/22 15:35 [facility] (Rec: 06/17/22 15:51 [facility] [id number]) PT-Bed Mobility Assessment Supine to Sit Supine to Sit Minimal Assistance Sit to Supine Sit to Supine Minimal Assistance Scooting Scooting to Edge of Bed Minimal Assistance PT-Transfer Assessment Sit to and From Stand Sit to and from Stand Contact Guard Assistance Equipment Transfer Assistive Device Gait Belt,Front Wheeled Walker Gait Assessment Gait Gait Assistance Required: Contact Guard Assist Distance (Feet) 12 Able to Maintain Weight Bearing Status Yes During Gait Assistive Devices Assistive Device Front Wheeled Walker Gait Deviations General Gait Pattern Antalgic,Step-to Gait Factors Limiting Gait Function Factors Limiting Gait Function Decreased Strength,Limited Range of Motion,Pain PT-Balance Assessment Sitting Balance and Reactions Static Sitting Balance Ability Good Dynamic Sitting Balance Ability Good Standing Balance and Reactions Static Standing Balance Ability Good Dynamic Standing Balance Ability Good Device Used FWW M5 PT-IP Objective Assessments Start: 06/17/22 14:53 Freq: NEEDED Status: Active Protocol: Document 06/17/22 15:35 [facility] (Rec: 06/17/22 15:51 [facility] [id number]) Orientation Orientation/Cognition Level of Alertness Alert Orientation Name,Place,Situation Language Function Ability No Deficits Noted Safety Awareness Decreased Safety Awareness Memory Description No Deficits Noted Gross Range of Motion Upper Extremity ROM Assessment Within Functional Limits Lower Extremity ROM Assessment Within Functional Limits Impairments except right knee PROM 10-65 approx Strength Upper Extremity Strength Assessment Within Functional Limits Lower Extremity Strength Assessment Within Functional Limits Comments Strength Comments except right knee requires mod assist for SAQ and SLR Coordination Assessment Gross Coordination Gross Coordination WNL Sensation Assessment Sensation Gross Sensation WNL M6 PT-IP Treatment Start: 06/17/22 14:53 Freq: NEEDED Status: Active Protocol: Document 06/17/22 15:35 [facility] (Rec: 06/17/22 15:51 [facility] [id number]) Physical Therapy Treatment Exercises Exercises Ankle Pumps,Quad Sets,Heel Slides,Straight Leg Raises, Short Arc Quads,Passive Knee Extension Hang Knee ROM Measurement 10-65 PROM Education Education Provided Precautions,Weight Bearing Status,Post-Op Packet,Safety M7 PT-IP Assessment and Plan Start: 06/17/22 14:53 Freq: NEEDED Status: Active Protocol: Document 06/17/22 15:35 [facility] (Rec: 06/17/22 15:51 [facility] [id number]) PT Summary Assessment and Plan Potential Rehabilitation Potential Good Status of Condition at Evaluation Evolving Summary Impairments Pain,ROM,Strength,Transfers, Gait Assessment Summary Patient post-op right TKA today. Initially hoping to go home today, but having difficulty with pain control, house has 2 stairs to enter with no railing, and he requires assistance with his mobility. He required min assist to move from supine ( HOB elevated) to sitting, verbal cues and CG sit to stand, and CGA and instruction for safe use of walker. Ambulated 12 ft with antalgic gait with FWW, cues to keep walker on the ground and to place right foot on ground vs hopping. Cues to push from and reach for bed during sit to and from standing transfers for safety. Patient reporting 6-7/10 pain. Was left in bed right LE elevated above his head with ice in place right knee, in room , and call light in place. Compression wraps for lower legs were intact when PT arrived, but no machine attached; [employer] informed and will apply and attach machine following PT. Feel patient will be able to discharge home after 1-2 further PT visits for further instruction and review of HEP, transfer and gait training on level surfaces and stairs. He has outpatient PT scheduled to start Wednesday06/23/22. Goals Bed Mobility Goal Independent Transfer Goal Independent Gait Goal Standby Assistance Gait Distance 100 Other Goals able to ascend and descend 2 stairs without railing with appropriate assistive device for safety Days to Meet Goals 2 Frequency of Treatment Frequency Of Treatment Twice a Day Treatment Plan Physical Therapy Treatment Plan Bed Mobility Training,Transfer Training,Gait Training, Therapeutic Exercise,Post Op Education,Discharge Planning, Hot or Cold Pack Weight Bearing Status Weight Bearing Status Weight Bear as Tolerated Recommendations To Nursing Amount of Assist Needed 1 Person Assist Discharge Recommendations PT Discharge Recommendations Home with Assistance Equipment Needed for Home Before He has walker and cane. Discharge Transportation Needs at Discharge Private Vehicle
[2022-06-17] MEDS: ASPIRIN EC 81 MG TABLET PO (21:39)
[2022-06-17] MEDS: ATORVASTATIN 20 MG TABLET PO (21:39)
[2022-06-17] MEDS: TAMSULOSIN 0.4 MG CAPSULE PO (21:39)
[2022-06-17] MEDS: DOCUSATE 100 MG CAPSULE PO (21:39)
[2022-06-17] MEDS: METFORMIN HCL 500 MG TABLET PO (21:39)
[2022-06-17] MEDS: ONDANSETRON 4 MG ODT PO (22:30)
[2022-06-18 00:29] VITALS: BP 112/64; PULSE 72; RESP 18; TEMP 36.7; O2SAT 96
[2022-06-18 05:30] VITALS: BP 128/71; PULSE 71; RESP 18; TEMP 36.7; O2SAT 95
[2022-06-18] MEDS: ACETAMINOPHEN 325 MG TABLET 650 MG PO ×2 (05:40→12:02)
[2022-06-18] MEDS: OXYCODONE IR 10 MG TABLET PO (05:40)
[2022-06-18 06:46] LABS: Hematocrit 30.5 % (41-53); Hemoglobin 10.5 g/dL (13.5-17.5)
--- NOTE | 2022-06-18 07:19 | P.DS_ITS ---
History of Present Illness History of Present Illness Date Patient Seen: 06/18/22 Time Patient Seen: 07:20 Chief complaint: OPB Narrative: The history and physical is contained in the chart previously completed note. Please refer to that note for this information. Discharge Providers Provider Date of admission: June 17, 2022 Discharge Date: 06/18/22 Primary care physician: Chandler Lopez MD Consults: 06/17/22 11:35 Consult to Discharge Planning Routine Comment: Consult to Physical Therapy Evaluate & Treat Comment: Physician Instructions: postop TKA protocol Discharge provider: Jose Alfredo Carrasco MD Summary Hospital Course Discharge Diagnosis: 1. Right knee osteoarthritis 2. Post hemorrhagic anemia Hospital Course: Patient was admitted to the hospital and taken directly to the operating room on June 17, 2022. He underwent a right total knee replacement without complications. On postoperative day 1 he had a mild post hemorrhagic anemia which is anticipated will improve spontaneously. He is stable for discharge. Status at Discharge Cognitive/behavioral status at discharge: at baseline, oriented Functional status at discharge: uses cane/walker Overall status at discharge: patient is progressing back to baseline Time Spent with Patient Time spent: Less than 30 minutes Exam Vital Signs (past 8 hours): - 06/18/22 00:29 06/18/22 05:30 Temperature 98.0 F 98.1 F Pulse Rate 72 71 Respiratory Rate 18 18 Blood Pressure 112/64 128/71 Pulse Oximetry 96 95 Oxygen Flow Rate 0 0 Oxygen Delivery Method Room Air Oxygen Flow Rate 0 Narrative Exam Narrative: Right knee wound is dressed with no drainage on the bandage. Calf is soft. Light touch and motion are intact in the right lower extremity. Objective Labs Result Diagrams: 06/18/22 06:16 Labs: Laboratory Results - last 24 hr 06/18/22 06:16 Hgb 10.5 L Hct 30.5 L PFSH Medical History (Updated 06/09/22 @ 12:49 by Whitney Burch RN) Anemia Chickenpox (Unknown) COPD (chronic obstructive pulmonary disease) Depression Essential hypertension (03/25/18) GERD (gastroesophageal reflux disease) (Unknown) Gout (Unknown) Gout Hearing loss (Unknown) Obstructive sleep apnea (Unknown) DEMETRIA (obstructive sleep apnea) Tinnitus of both ears (Unknown) Type 2 diabetes mellitus without complication, without long-term current use of insulin (03/25/18) Surgical History (Updated 06/09/22 @ 11:14 by Whitney Burch RN) H/O esophagogastroduodenoscopy (~2019) History of surgery History of uvulopalatopharyngoplasty (~2006) Hx of colonoscopy (~2019) Hx of prostate biopsy (~2020) Family History Father Heart disease Mother Cancer Social History household members: spouse Smoking Status: Never smoker alcohol intake: current Discharge Assessment & Plan Assessment and Plan Assessment: Stable postoperative day 1 status post right total knee replacement with mild post hemorrhagic anemia. Plan of Treatment: Discharge today with follow-up in the office in 10-14 days. Discharge prescriptions have been provided for oxycodone for pain control and for Vistaril for spasm control. He has also been instructed in the use of anti- inflammatories and Tylenol for additional pain control and the use of low-dose aspirin for DVT prophylaxis. Discharge Plan Discharge Plan Patient Disposition: Home Discharge orders & Medications Discharge Orders: Discharge (Order); Ordered 06/18/22 Ordered By: Jose Alfredo Carrasco Prescriptions: New acetaminophen 325 mg Tablet 650 mg PO Q6HR Qty: 100 0RF aspirin 81 mg Tablet,Delayed Release (Dr/Ec) 81 mg PO BID Qty: 84 0RF hydroxyzine pamoate 25 mg Capsule 25 mg PO Q6H PRN (Reason: Nausea And Vomiting) Qty: 40 0RF ibuprofen 400 mg Tablet 400 mg PO Q4HR Qty: 100 0RF oxycodone 5 mg Tablet 5 mg PO Q4H PRN (Reason: Pain, Moderate (4-6)) Qty: 40 0RF Continued bupropion HCl 150 mg tablet extended release 24 hr 150 mg PO QAM Qty: 90 3RF alprazolam 1 mg tablet 0.5 mg PO BID PRN (Reason: anxiety and sleep) Qty: 60 0RF indomethacin 50 mg capsule 50 mg PO TID PRN (Reason: Gout ) Qty: 30 11RF Rx Instructions: administer with food or milk losartan 50 mg tablet 50 mg PO DAILY Qty: 90 3RF Label Comments: Takes at bedtime amlodipine 10 mg tablet 10 mg PO DAILY Qty: 90 2RF Label Comments: Takes at bedtime tamsulosin 0.4 mg capsule 0.4 mg PO BEDTIME Qty: 90 3RF atenolol 50 mg tablet 25 mg PO DAILY Qty: 45 3RF Label Comments: Takes at bedtime atorvastatin 20 mg tablet 20 mg PO BEDTIME Qty: 90 3RF metformin 500 mg tablet 500 mg PO BID Follow up/Referrals: Chandler Lopez MD [Primary Care Provider] - Jose Alfredo Carrasco MD [Physician] - 2 Weeks Diet/Activity/Treatments Diet: Diet as Tolerated and Carb-consistent/Diabetic Activity: You may bear weight as tolerated on your right leg. Cold/Heat Therapy: Apply ice for 15 minutes every hour as needed to the right knee for pain control. Skin/Wound/Dressing Care Report to your healthcare provider any signs of infection, such as:: chills, fever, night sweats, increased pain, unusual drainage and unusual redness Dressing: You may remove the Rajinder wrap in 3 days and shower normally. Leave the deeper dressing in place until your postoperative follow-up. If the central strip of the deeper dressing becomes saturated with either water or blood, please call the office to have it evaluated. Visit Report/Discharge Packet Instructions: DI for Knee Replacement Stand Alone Forms: Surgery Discharge Discharge Data Primary Care Provider: Chandler Lopez Attending Provider: Jose Alfredo Carrasco Quality VTE Deep Vein Thrombosis/Pulmonary Embolism Present on Admission: No
[2022-06-18] MEDS: OXYCODONE IR 5 MG TABLET PO ×3 (07:41→13:03)
[2022-06-18 07:53] VITALS: BP 151/67; PULSE 72; RESP 18; TEMP 36.7; O2SAT 95
[2022-06-18] MEDS: METFORMIN HCL 500 MG TABLET PO (08:25)
[2022-06-18] MEDS: ASPIRIN EC 81 MG TABLET PO (08:25)
[2022-06-18] MEDS: buPROPion XL 150 MG TAB PO (08:25)
[2022-06-18] MEDS: polyethylene glycoL 3350 17 GM POWD.PACK PO (08:25)
[2022-06-18] MEDS: IBUPROFEN 400 MG TABLET PO ×2 (08:25→12:02)
[2022-06-18] MEDS: AMLODIPINE 5 MG TABLET 10 MG PO (08:25)
[2022-06-18 08:26] VITALS: BP 151/67; PULSE 71
[2022-06-18] MEDS: DOCUSATE 100 MG CAPSULE PO (08:26)
[2022-06-18] MEDS: LOSARTAN 50 MG TABLET PO (08:26)
[2022-06-18] MEDS: atenoloL 50 MG TABLET 25 MG PO (08:26)
--- NOTE | 2022-06-18 13:00 | CM.DANOTE ---
DCP Assessment: Payor: Medicare PCP: MD Jessica Pt is a 67 y.o. who is status post R Knee replacement. Pt has PMH of arthritis, COPD, Depression and DM. Pt was admitted to the floor for observation and PT/OT evals pending discharge. DCP met with pt this morning. Pt sitting up in chair. DCP introduced herself and explained role. Pt states that he lives with his Melva in a 2 story house in [place]. Pt states that he currently owns a walker and crutches. Pt states that he is fairly independent at baseline. Pt declines any resources at this time. Pt states that when the time for discharge come, pt will pick him up. White board updated and instructed to call. Pt is to work with PT today for evals and hopefully will discharge home. P: Pt to discharge home via spouse POV today pending PT/OT Kylie Archer RN/COREY Discharge Planning/Care Management CM Discharge Assessment Start: 06/18/22 09:33 Freq: Status: Active Protocol: Document 06/18/22 09:33 ELLE (Rec: 06/18/22 09:34 ELLE [id number]) Discharge Planning Assessment Assigned Florist Supplies Salesperson Kylie Archer Advance Directives? No History Provided By Patient Prior Living Arrangements House Household Members spouse Type of transporation used prior to Drives own vehicle admit Independent with ADL's Yes Is patient alert and oriented? Yes Caregiver for Another No Barriers to Discharge No Discharge Plan Home Referrals Initiated None needed Additional Comment At this time Whiteboard Updated in Patient Room with Yes name and ext. # of Florist Supplies Salesperson Comment Instructed to call Review Status In Process Please Provide Date Initial DC 06/18/22 Assessment Was Performed Next Review Type Continued Stay Review Pre-Anesthesia Assessment Start: 06/09/22 10:48 Freq: Status: Complete Protocol: Document 06/09/22 10:48 CAB (Rec: 06/09/22 11:36 CAB [id number]) Pre-Anesthesia Assessment Preferred Name Paras or Partha Patient Information Reviewed Via Phone Assessment Assessment Completed With Patient Diagnostic Results BMP/CMP,CBC,EKG Comment Labs/ECG @ [facility] 05/25/22, COVID screen @ [facility] 06/15/22 Primary Care Provider Chandler Lopez Seen Specialist in Last 12 Months No Specialist Seen Furnace Builder,Orthopedist, Urologist,Other Comment Nephrology visit 05/27/22 scanned Primary Language [place] Gym Attendant Required No Height 177.8 cm Weight 75.296 kg Body Mass Index (BMI) 23.8 Hearing Ability Normal Visual Assist Glasses Dentition Type Teeth, Natural Present,Teeth, Missing Hx Anesthesia Reactions Yes: Severe sore throat s/p anal fistula surgery Hx Family Anesthesia Reaction No Hx Malignant Hyperthermia No Hx Blood Transfusions No Anesthesia Review Requested No alcohol intake current alcohol intake frequency a few times a week Smoking Status Never smoker Substance Use Type does not use Pain Present Pain Reported Musculoskeletal Symptoms Abnormal Gait,Difficulty Walking,Joint Pain History of Falling (Recent or History of No ) Patient is completely paralyzed or No completely immobile Mental Status Oriented to own ability Is patient on oxygen? No Does patient have LOMBARDI/SOB No Hx Sleep Apnea Yes: s/p UPPP surgery, no CPAP Currently Taking a Beta Shon Yes: Atenolol Can You Climb a Flight of Stairs Without Yes SOB Hx Chest Pain No Hx SOB No Hx Syncope or Dizziness No Anti-Coagulant Therapy No Has a Track Surfacing Machine Operator No Cardiac Testing No Hx Pacemaker/ICD No Pacemaker Rep Required? No Cardiac Clearance Received Not Applicable Diet Type At Home Regular dysphagia No Gastrointestinal Symptoms Reflux Bladder Pattern Frequency,Nocturia Urinary Catheter Present No Hx Urinary Self Catheterization No Diabetes Yes: Pt does not check blood sugars at home HgbA1C 7.4 Date 04/15/22 Comment Fructosamine 273 on labs Hx Drug Resistant Organism No Presence of External or Internal Medical No Devices Have you had any close contact with No someone diagnosed with COVID-19? Received a COVID vaccine? Yes: Does not plan to get second booster Marital Status Lives With spouse Prior Living Arrangements House Number of Floors (Floors) Two Floors Support System Spouse Does the Patient Have Assistance After Yes Surgery Patient Discharge Plan Description Return Home Comment Pt not advised on length of stay per surgeon Feels Safe in Current Environment Yes Been Physically Hurt or Threatened By a No Person in Current Environment Do you have thoughts of harming yourself None or others? Are you currently considering suicide? No Do you have a plan to hurt yourself or No Plan others? Do You Have Any Spiritual Beliefs That No May Affect Your HC Choices? Do You Have Any Cultural Practices That No May Affect Your HC Choices? Comment Mosque Who Can We Speak to About Patient's Care Family, friends Identifying Code for Release of Patient Declines to issue Information Health Care Proxy/Next of Kin Kelsea () Health Care Proxy Emergency Contact Name Kelsea () Emergency Contact Advance Directives? No Power of Certified Court/Medical Interpreter No PAC Instructions Diabetes instructions,Durable medical equipment,Medications to take/avoid,Nasal antibiotic ,No ETOH/petroleum product on skin DOS,NPO,Post-op transportation,Pre-surgical wash,Sensory aids,Sturdy shoes /comfortable clothes,Do not bring valuables and remove jewelry
== END 2022-06-18 13:48 | disposition home or self-care (01) ==
LOC: OR 06:51 → AC 06:53
PROVIDERS: PCP Student in an Organized Health Care Education/Training Program; Referring Provider Orthopaedic Surgery; Visit Provider Orthopaedic Surgery
PROC: 0SRC0JZ Replacement of Right Knee Joint with Synthetic Substitute, Open Approach (ICD-10-PCS; CPT 27447; principal; 2022-06-17 08:45)
DX: M17.11 Unilateral primary osteoarthritis, right knee (principal); E11.9 Type 2 diabetes mellitus without complications; J44.9 Chronic obstructive pulmonary disease, unspecified; I10 Essential (primary) hypertension; K21.9 Gastro-esophageal reflux disease without esophagitis; G47.33 Obstructive sleep apnea (adult) (pediatric); Z79.84 Long term (current) use of oral hypoglycemic drugs
CPT/HCPCS: 27447; 36415; 73560; 82962; 85014; 85018; 97110; 97116; 97161; 97535; C1776; C1713; C9290; J0171; J0690; J1100; J1815; J2250; J2270; J2405; J2704; J3010